=== PATIENT | male | born 1985 | race Caucasian/White ===

== ENCOUNTER 2020-08-21 13:51 | Emergency (ER) | payer OTHER, SELFPAY ==
[2020-08-21 13:52] VITALS: BP 149/75; PULSE 83; RESP 15; TEMP 36.8; O2SAT 98; BMI 29.7
--- NOTE | 2020-08-21 14:03 | RAD_ITS ---
STUDY: X-RAY - RIGHT HAND REASON FOR EXAM: Male, 34 years old. iinjury -- attn: 4th digit TECHNIQUE: 3 view(s) of the hand. COMPARISON: None. FINDINGS: Normal radiocarpal articulation. Normal distal radioulnar joint. Normal visualized carpal bones. Normal carpal articulations Normal carpometacarpal articulation of the thumb. Normal second through fifth carpometacarpal joints. Normal metacarpi. Normal metacarpophalangeal joint of the thumb. Normal interphalangeal joint of the thumb. Normal proximal and distal phalanges of the thumb. Normal metacarpophalangeal joints of the second through fifth fingers. Normal proximal and distal interphalangeal joints of the second through fifth fingers. Comminuted fracture of the fourth distal phalanx with soft tissue swelling. The soft tissue structures are otherwise unremarkable. RAD/Hand Min 3 Views IMPRESSION: Fourth distal phalanx fracture with soft tissue swelling. Electronically Signed: Zeke Schroeder MD ([facility]) at 14:41 EDT , Service support ,
[2020-08-21] MEDS: Lidocaine 1% (20 ml mdv) 20 ML Vial INFILT (15:10)
[2020-08-21] MEDS: Bupivacaine Mpf 0.5% 30 ML VIAL INFILT (15:10)
--- NOTE | 2020-08-21 15:29 | ED.VIS.GEN ---
History of Present Illness Chief Complaint: Upper Extremity Injury Detail of Chief Complaint: Crush injury right fourth finger Informant: Patient Onset: Today Current Severity: Moderate Maximum Severity: Severe Narrative: Patient presents with crush injury to the right fourth finger. He states he was helping cut down trees when his right fourth finger got caught between concrete and a fork on a tractor. Tetanus is up-to-date. Past Medical History - Allergies and Home Meds Allergies/Adverse Reactions: Allergies No Known Allergies Allergy (Verified 08/21/20 13:52) Primary Care Physician: Mikael Qiu MD [Primary Care Provider] - Past Medical History: None Lives: With Family Smoking Status: Never smoker Review of Systems General: Denies: Chills, Fever Eyes: Denies: Visual changes - bilaterally ENT: Denies: Bilateral ear pain Cardiovascular: Denies: Chest pain Respiratory: Denies: Dyspnea, Cough Gastrointestinal: Denies: Abdominal pain, Vomiting, Diarrhea Musculoskeletal: Reports: Extremity Pain Skin: Reports: Wounds Neurological: Denies: Headache, Parasthesia, Numbness Psych: Denies: Depression Hematologic: Denies: Easy bruising, Easy bleeding Allergy: Denies: Uticaria Physical Exam Vital Signs/Narrative: Vital Signs Temp Pulse Resp BP Pulse Ox 08/21/20 13:52 98.3 F 83 15 149/75 H 98 Inital Vital Signs reviewed: Yes General: Well nourished, Well developed Head: Normocephalic Neck: Supple Cardiovascular: Regular rate, Regular rhythm Respiratory: No distress, CTA bilaterally Abdomen: Soft, Nontender Extremities: - - Large U-shaped flap laceration over the distal phalanx of the right fourth finger on the palmar side. Base of the nail on the opposite side is exposed over the skin. Subungual hematoma is noted. Neurological: Alert, Oriented x3 Psychological: Normal affect Diagnostic/Tx/Re-eval Impressions Hand X-Ray 08/21/20 14:03 IMPRESSION: Fourth distal phalanx fracture with soft tissue swelling. Electronically Signed: Zeke Schroeder MD ([facility]) at 14:41 EDT , Service support , 08/21/20 14:03 Hand Min 3 Views [RAD] Stat - Medical Decision Making Digital block was performed with a 50-50 mix of Marcaine and lidocaine. 6 cc total were used. X-rays were obtained and patient does have evidence of a tuft fracture. Wounds were irrigated. Flap laceration was closed with 11 simple interval sutures of 4-0 nylon. The nail base was able to be tucked back into the nailbed and secured with 2 anchoring sutures at the base of the nail. Following splint application flap is pinking up and looks viable. Dressing will be applied with a large bulky dressing. Patient will be covered with Augmentin secondary to open fracture. He will follow-up with [facility] in [place]. ED Disposition - Plan for ED Patient: Disposition: Home or Assisted Living Diagnosis: Open fracture of tuft of distal phalanx of finger Instructions: ED Fracture, Finger, Open Prescriptions: Amox/Clavulanate Tablet [Augmentin Tablet] 875 mg PO Q12H #20 tab Transmission Status: Received by [facility] Hydrocodone Bitart/Apap 5-325 [[place] 5MG-325MG] 1 tablet PO Q6H PRN PRN 3 Days #14 tablet PRN Reason: Pain Transmission Status: Received by [facility] Referrals: Mikael Qiu MD [Primary Care Provider] - Additional Instructions: Follow-up with [facility] in [place] as discussed. Stitches need removed in 10 days.
[2020-08-21 15:48] VITALS: BP 117/70; PULSE 73; RESP 16
== END 2020-08-21 15:52 | disposition home or self-care (01) ==
PROVIDERS: Emergency Provider Emergency Medicine; PCP Family Medicine
DX: S62.634B Displaced fracture of distal phalanx of right ring finger, initial encounter for open fracture (principal); W31.89XA Contact with other specified machinery, initial encounter; Y93.9 Activity, unspecified; Y92.89 Other specified places as the place of occurrence of the external cause; Y99.9 Unspecified external cause status
CPT/HCPCS: 11760; 73130; 99283